=== PATIENT | female | born 1960 | race Caucasian/White ===

== ENCOUNTER 2024-07-25 21:50 | Emergency (ER) | payer SELFPAY ==
[~2024-07-25] VITALS: Ht 157.5 cm; Wt 65.0 kg
[2024-07-25 22:01] VITALS: O2SAT 99
[2024-07-25 22:40] VITALS: BP 151/87; PULSE 63; RESP 16; TEMP 36.7; O2SAT 99
[2024-07-26] MEDS ORDERED: ACYC200C31 MT (00:36)
[2024-07-26] MEDS ORDERED: P50 MT (00:36)
[2024-07-26] MEDS ORDERED: HYPR15DR23 EACHEYE (00:39)
== END 2024-07-26 00:52 | disposition home or self-care (01) ==
LOC: ER 21:50
DX: G51.0 Bell's palsy (principal); Z98.890 Other specified postprocedural states
CPT/HCPCS: 99283